=== PATIENT | female | born 1955 | race Caucasian/White ===

== ENCOUNTER 2020-09-17 15:52 | Inpatient (IN) | payer MEDICAID, SELFPAY ==
[~2020-09-17] VITALS: Ht 167.6 cm; Wt 80.7 kg
[2020-09-17 15:52] VITALS: BP_SYST 135
[2020-09-17] MEDS ORDERED: cefTRIAXone 1 GM IVPB PREMIX 50 ML IV ONE (16:15)
[2020-09-17 16:52] LABS: BILIRUBIN,URINE NEGATIVE (NEGATIVE); BLOOD, URINE NEGATIVE (NEGATIVE); COLOR,URINE YELLOW (YELLOW); GLUCOSE,URINE NEGATIVE (NEGATIVE); KETONES,URINE NEGATIVE (NEGATIVE); LEUKOCYTE ESTERASE ,URINE NEGATIVE (NEGATIVE); NITRITE, URINE NEGATIVE (NEGATIVE); PH,URINE 5.5 (5.0-8.0); PROTEIN URINE 2+ (NEGATIVE); UROBILINOGEN,URINE 0.2 (0.2-1.0)
[2020-09-17 17:06] LABS: BASOPHILS % (AUTO) 0.4 % (0.0-2.0); EOSINOPHILS # (AUTO) 0.3 K/uL (0.0-0.4); EOSINOPHILS % (AUTO) 3.8 % (0.0-4.0); HEMATOCRIT 31.5 % (36-48); HEMOGLOBIN 10.8 g/dL (12.0-16.0); LYMPHOCYTES # (AUTO) 2.5 K/uL (1.0-5.5); LYMPHOCYTES % (AUTO) 30.4 % (20.5-51.5); MEAN CORPUSCULAR HEMOGLOBIN 30 pg (27-31); MEAN CORPUSCULAR HGB CONC 34 % (32-36); MEAN CORPUSCULAR VOLUME 89 fL (79.0-98.0); MONOCYTES # (AUTO) 0.5 K/uL (0.0-1.0); MONOCYTES % (AUTO) 6.1 % (1.7-9.3); NEUTROPHILS # (AUTO) 4.9 K/uL (1.8-7.7); NEUTROPHILS % (AUTO) 59.3 % (40.0-70.0); PLATELET COUNT (AUTO) 341 K/uL (130-430); RED BLOOD CELL COUNT(AUTO) 3.55 MIL/uL (4.2-6.2); RED CELL DISTRIBUTION WIDTH 14.7 % (9.0-15.0); WHITE BLOOD COUNT (AUTO) 8.3 K/uL (4.8-10.8)
[2020-09-17 17:19] LABS: CLARITY/URINE HAZY (CLEAR)
[2020-09-17 17:20] LABS: CALCIUM 9.1 mg/dL (8.4-11.0); CREATININE 1.56 mg/dL (0.55-1.30); POTASSIUM 4.2 mmol/L (3.5-5.1)
[2020-09-17 17:37] LABS: ALBUMIN 2.4 g/dL (3.4-4.8)
[2020-09-17 17:39] LABS: INR 0.9 (0.8-1.2); PROTHROMBIN TIME 9.6 SECS (9.5-12.5)
[2020-09-17 17:59] LABS: BACTERIA,URINE None Seen /HPF (None Seen); RBC,URINE 0-3 /HPF (0-3); URINE AMORPHOUS PHOSPHATES None Seen /HPF (None Seen); URINE AMORPHOUS URATE 2+ /HPF (None Seen); WBC,URINE 0-3 /HPF (0-3)
[2020-09-17 18:04] LABS: TOTAL BILIRUBIN 0.2 mg/dL (0.0-1.0)
[2020-09-17 20:18] VITALS: BP_SYST 173
[2020-09-17 20:30] VITALS: BP_SYST 169
[2020-09-17] MEDS ORDERED: LISI-600 PO (22:40)
[2020-09-17] MEDS ORDERED: LIP40 PO (22:40)
[2020-09-17] MEDS ORDERED: OMEP20CA15 PO (22:40)
[2020-09-17] MEDS ORDERED: GLU500 PO (22:40)
[2020-09-17] MEDS ORDERED: NEU300 PO (22:40)
[2020-09-17] MEDS ORDERED: GLIP5TAB13 PO (22:40)
[2020-09-17] MEDS ORDERED: METO25TA6 PO (22:40)
[2020-09-17] MEDS ORDERED: CHLO25TA2 PO (22:40)
[2020-09-17] MEDS ORDERED: ASPI-859 PO (22:40)
[2020-09-17] MEDS ORDERED: hydrALAZINE HCL 20 MG/ML VIAL IVP PRN (22:45)
[2020-09-17 22:55] VITALS: BP_SYST 173
[2020-09-17] MEDS ORDERED: ONDANSETRON HCL 4 MG/2 ML VIAL IVP PRN (23:00)
[2020-09-17] MEDS ORDERED: ALBUTEROL SULFATE 0.083% 2.5 MG/3 ML VIAL.NEB INH PRN (23:00)
[2020-09-17] MEDS ORDERED: METOPROLOL TARTRATE 25 MG TABLET PO ONE (23:15)
[2020-09-17] MEDS: METOPROLOL TARTRATE 25 MG TABLET PO SCH (23:15)
[2020-09-18] VITALS: BP_SYST 142
[2020-09-18] MEDS: INSULIN REGULAR, HUMAN 100 UNITS/ML, 10 ML VIAL (humuLIN R) SUBCUT PRN ×3 (06:10→21:39)
[2020-09-18 06:24] LABS: BASOPHILS # (AUTO) 0.1 K/uL (0.0-0.2); BASOPHILS % (AUTO) 0.6 % (0.0-2.0); EOSINOPHILS # (AUTO) 0.3 K/uL (0.0-0.4); EOSINOPHILS % (AUTO) 3.7 % (0.0-4.0); HEMATOCRIT 29.1 % (36-48); HEMOGLOBIN 9.8 g/dL (12.0-16.0); LYMPHOCYTES # (AUTO) 2.2 K/uL (1.0-5.5); LYMPHOCYTES % (AUTO) 24.8 % (20.5-51.5); MEAN CORPUSCULAR HEMOGLOBIN 30 pg (27-31); MEAN CORPUSCULAR HGB CONC 34 % (32-36); MEAN CORPUSCULAR VOLUME 89 fL (79.0-98.0); MONOCYTES # (AUTO) 0.7 K/uL (0.0-1.0); MONOCYTES % (AUTO) 8.4 % (1.7-9.3); NEUTROPHILS # (AUTO) 5.5 K/uL (1.8-7.7); NEUTROPHILS % (AUTO) 62.5 % (40.0-70.0); PLATELET COUNT (AUTO) 274 K/uL (130-430); RED BLOOD CELL COUNT(AUTO) 3.28 MIL/uL (4.2-6.2); RED CELL DISTRIBUTION WIDTH 14.1 % (9.0-15.0); WHITE BLOOD COUNT (AUTO) 8.8 K/uL (4.8-10.8)
[2020-09-18 07:08] LABS: ALBUMIN 2.1 g/dL (3.4-4.8); CALCIUM 8.8 mg/dL (8.4-11.0); CREATININE 1.14 mg/dL (0.55-1.30); POTASSIUM 3.8 mmol/L (3.5-5.1); TOTAL BILIRUBIN 0.1 mg/dL (0.0-1.0)
[2020-09-18 08:00] VITALS: BP_SYST 98
[2020-09-18] MEDS: lisinopriL 20 MG TABLET PO SCH (09:00)
[2020-09-18] MEDS ORDERED: DIATR MEGLU/DIATRIZ SOD 30 ML SOLUTION PO ONE (09:19)
[2020-09-18 10:52] LABS: TOTAL IRON BIND. CAPACITY 240 ug/dL (250-450)
[2020-09-18 11:28] VITALS: BP_SYST 152
[2020-09-18] MEDS ORDERED: MORPHINE 2 MG/ML INJ. SYRINGE IVP ONE (13:00)
[2020-09-18] MEDS ORDERED: MORPHINE 2 MG/ML INJ. SYRINGE ONE (13:15)
[2020-09-18] MEDS: METOPROLOL TARTRATE 25 MG TABLET PO SCH (13:41)
[2020-09-18] MEDS: ASPIRIN 81 MG TABLET(ECOTRIN) PO SCH (13:41)
[2020-09-18] MEDS: PANTOPRAZOLE SODIUM 40 MG TAB PO SCH (13:41)
[2020-09-18] MEDS: ACETAMINOPHEN 325 MG TABLET PO PRN (13:41)
[2020-09-18 15:43] VITALS: BP_SYST 120
[2020-09-18] MEDS ORDERED: BALSAM PERU/CASTOR OIL 60 GM OINT...G. TP ONE (16:15)
[2020-09-18] MEDS: CHLORTHALIDONE 25 MG TABLET (HYGROTON) PO SCH (17:27)
[2020-09-18 20:00] VITALS: BP_SYST 100
[2020-09-18] MEDS: GABAPENTIN 300 MG CAPSULE PO SCH (21:31)
[2020-09-18] MEDS: ATORVASTATIN 20 MG TABLET PO SCH (21:33)
[2020-09-18] MEDS: NYSTATIN 15 GM TOPICAL POWDER TP SCH (21:34)
[2020-09-19 00:50] VITALS: BP_SYST 92
[2020-09-19 04:24] VITALS: BP_SYST 115
[2020-09-19] MEDS: INSULIN REGULAR, HUMAN 100 UNITS/ML, 10 ML VIAL (humuLIN R) SUBCUT PRN ×4 (05:57→20:02)
[2020-09-19 08:00] VITALS: BP_SYST 158
[2020-09-19] MEDS ORDERED: HYDROcodone/ACETAMIN 5-325 MG TAB (NORCO/ VICODIN) PO PRN (09:15)
[2020-09-19] MEDS: ASPIRIN 81 MG TABLET(ECOTRIN) PO SCH (10:14)
[2020-09-19] MEDS: NYSTATIN 15 GM TOPICAL POWDER TP SCH ×2 (10:14→19:55)
[2020-09-19] MEDS: lisinopriL 20 MG TABLET PO SCH (10:15)
[2020-09-19] MEDS: CHLORTHALIDONE 25 MG TABLET (HYGROTON) PO SCH (10:15)
[2020-09-19] MEDS: PANTOPRAZOLE SODIUM 40 MG TAB PO SCH (10:15)
[2020-09-19] MEDS: BALSAM PERU/CASTOR OIL 60 GM OINT...G. TP SCH (10:16)
[2020-09-19 11:30] VITALS: BP_SYST 148
[2020-09-19 15:47] VITALS: BP_SYST 124
[2020-09-19] MEDS: METOPROLOL TARTRATE 25 MG TABLET PO SCH (17:30)
[2020-09-19 19:34] VITALS: BP_SYST 125
[2020-09-19] MEDS: GABAPENTIN 300 MG CAPSULE PO SCH (19:54)
[2020-09-19] MEDS: ATORVASTATIN 20 MG TABLET PO SCH (19:54)
[2020-09-20] VITALS (8 sets, daily range): BP systolic 102–162
[2020-09-20] MEDS: INSULIN REGULAR, HUMAN 100 UNITS/ML, 10 ML VIAL (humuLIN R) SUBCUT PRN ×3 (06:11→20:38)
[2020-09-20 07:23] LABS: RETICULOCYTE COUNT 1.1 % (0.5-1.5)
[2020-09-20 07:59] LABS: LACTATE DEHYDROGENASE 143 U/L (81-234)
[2020-09-20 08:37] LABS: C-REACTIVE PROTEIN QUANT < 0.2 mg/dL (0-0.5)
[2020-09-20] MEDS: PANTOPRAZOLE SODIUM 40 MG TAB PO SCH (09:00)
[2020-09-20] MEDS: METOPROLOL TARTRATE 25 MG TABLET PO SCH (09:00)
[2020-09-20] MEDS: lisinopriL 20 MG TABLET PO SCH (09:00)
[2020-09-20] MEDS: ASPIRIN 81 MG TABLET(ECOTRIN) PO SCH (09:00)
[2020-09-20] MEDS: CHLORTHALIDONE 25 MG TABLET (HYGROTON) PO SCH (09:00)
[2020-09-20] MEDS: BALSAM PERU/CASTOR OIL 60 GM OINT...G. TP SCH (09:37)
[2020-09-20] MEDS: NYSTATIN 15 GM TOPICAL POWDER TP SCH ×2 (09:37→20:34)
[2020-09-20] MEDS: GABAPENTIN 300 MG CAPSULE PO SCH (20:34)
[2020-09-20] MEDS: ATORVASTATIN 20 MG TABLET PO SCH (20:34)
[2020-09-21] VITALS: BP_SYST 106
[2020-09-21] MEDS: INSULIN REGULAR, HUMAN 100 UNITS/ML, 10 ML VIAL (humuLIN R) SUBCUT PRN ×4 (06:21→20:01)
[2020-09-21 07:51] VITALS: BP_SYST 119
[2020-09-21 09:06] LABS: FERRITIN 70 ng/mL (15-150); FOLATE (FOLIC ACID) 9.8 ng/mL (>3.0); KAPPA & LAMBDA LT CHAIN RATIO 2.09 (0.26-1.65)
[2020-09-21] MEDS: PANTOPRAZOLE SODIUM 40 MG TAB PO SCH (09:25)
[2020-09-21] MEDS: ASPIRIN 81 MG TABLET(ECOTRIN) PO SCH (09:25)
[2020-09-21] MEDS: METOPROLOL TARTRATE 25 MG TABLET PO SCH (09:26)
[2020-09-21] MEDS: lisinopriL 20 MG TABLET PO SCH (09:27)
[2020-09-21] MEDS: CHLORTHALIDONE 25 MG TABLET (HYGROTON) PO SCH (09:27)
[2020-09-21] MEDS: BALSAM PERU/CASTOR OIL 60 GM OINT...G. TP SCH (09:28)
[2020-09-21] MEDS: NYSTATIN 15 GM TOPICAL POWDER TP SCH ×2 (09:28→19:56)
[2020-09-21 12:00] VITALS: BP_SYST 139
[2020-09-21 15:07] LABS: A/G RATIO 0.8 (0.7-1.7); ALBUMIN 2.3 g/dL (2.9-4.4); ALPHA-1-GLOBULIN 0.2 g/dL (0.0-0.4); GAMMA GLOBULIN 0.6 g/dL (0.4-1.8); GLOBULIN, TOTAL 2.8 g/dL (2.2-3.9); M-SPIKE Not Observed g/dL (Not Observed)
[2020-09-21 16:12] VITALS: BP_SYST 135
[2020-09-21] MEDS: ATORVASTATIN 20 MG TABLET PO SCH (19:55)
[2020-09-21] MEDS: GABAPENTIN 300 MG CAPSULE PO SCH (19:56)
[2020-09-21 20:00] VITALS: BP_SYST 100
[2020-09-22 00:22] VITALS: BP_SYST 90
[2020-09-22 00:30] VITALS: BP_SYST 103
[2020-09-22] MEDS: INSULIN REGULAR, HUMAN 100 UNITS/ML, 10 ML VIAL (humuLIN R) SUBCUT PRN ×4 (06:04→20:01)
[2020-09-22 06:43] LABS: BASOPHILS % (AUTO) 0.3 % (0.0-2.0); EOSINOPHILS # (AUTO) 0.3 K/uL (0.0-0.4); EOSINOPHILS % (AUTO) 3.4 % (0.0-4.0); HEMOGLOBIN 9.4 g/dL (12.0-16.0); LYMPHOCYTES % (AUTO) 31.3 % (20.5-51.5); MEAN CORPUSCULAR HEMOGLOBIN 30 pg (27-31); MEAN CORPUSCULAR HGB CONC 33 % (32-36); MEAN CORPUSCULAR VOLUME 89 fL (79.0-98.0); MONOCYTES # (AUTO) 0.6 K/uL (0.0-1.0); MONOCYTES % (AUTO) 6.5 % (1.7-9.3); NEUTROPHILS # (AUTO) 5.6 K/uL (1.8-7.7); NEUTROPHILS % (AUTO) 58.5 % (40.0-70.0); PLATELET COUNT (AUTO) 272 K/uL (130-430); RED BLOOD CELL COUNT(AUTO) 3.14 MIL/uL (4.2-6.2); RED CELL DISTRIBUTION WIDTH 14.4 % (9.0-15.0); WHITE BLOOD COUNT (AUTO) 9.5 K/uL (4.8-10.8)
[2020-09-22] MEDS: ASPIRIN 81 MG TABLET(ECOTRIN) PO SCH (08:28)
[2020-09-22] MEDS: CHLORTHALIDONE 25 MG TABLET (HYGROTON) PO SCH (08:28)
[2020-09-22] MEDS: METOPROLOL TARTRATE 25 MG TABLET PO SCH (08:28)
[2020-09-22] MEDS: PANTOPRAZOLE SODIUM 40 MG TAB PO SCH (08:28)
[2020-09-22 08:29] VITALS: BP_SYST 133
[2020-09-22] MEDS: NYSTATIN 15 GM TOPICAL POWDER TP SCH ×2 (08:29→19:59)
[2020-09-22] MEDS: BALSAM PERU/CASTOR OIL 60 GM OINT...G. TP SCH (08:29)
[2020-09-22] MEDS: lisinopriL 20 MG TABLET PO SCH (08:29)
[2020-09-22] MEDS: ACETAMINOPHEN 325 MG TABLET PO PRN (11:37)
[2020-09-22 12:10] VITALS: BP_SYST 112
[2020-09-22 16:12] VITALS: BP_SYST 135
[2020-09-22] MEDS: GABAPENTIN 300 MG CAPSULE PO SCH (19:59)
[2020-09-22] MEDS: ATORVASTATIN 20 MG TABLET PO SCH (19:59)
[2020-09-22 20:00] VITALS: BP_SYST 127
[2020-09-22] MEDS ORDERED: LIDOCAINE 1% 10 MG/ML, 20 ML MDV INJ ONE (22:00)
[2020-09-23] VITALS (7 sets, daily range): BP systolic 105–157
[2020-09-23] MEDS: INSULIN REGULAR, HUMAN 100 UNITS/ML, 10 ML VIAL (humuLIN R) SUBCUT PRN ×4 (06:06→20:47)
[2020-09-23] MEDS: ASPIRIN 81 MG TABLET(ECOTRIN) PO SCH (08:47)
[2020-09-23] MEDS: PANTOPRAZOLE SODIUM 40 MG TAB PO SCH (08:47)
[2020-09-23] MEDS: lisinopriL 20 MG TABLET PO SCH (08:48)
[2020-09-23] MEDS: METOPROLOL TARTRATE 25 MG TABLET PO SCH (08:48)
[2020-09-23] MEDS: BALSAM PERU/CASTOR OIL 60 GM OINT...G. TP SCH (08:49)
[2020-09-23] MEDS: CHLORTHALIDONE 25 MG TABLET (HYGROTON) PO SCH (08:49)
[2020-09-23] MEDS: NYSTATIN 15 GM TOPICAL POWDER TP SCH ×2 (08:50→20:44)
[2020-09-23] MEDS: ACETAMINOPHEN 325 MG TABLET PO PRN (11:53)
[2020-09-23] MEDS: GABAPENTIN 300 MG CAPSULE PO SCH (20:43)
[2020-09-23] MEDS: ATORVASTATIN 20 MG TABLET PO SCH (20:43)
[2020-09-24 00:36] VITALS: BP_SYST 124
[2020-09-24] MEDS: INSULIN REGULAR, HUMAN 100 UNITS/ML, 10 ML VIAL (humuLIN R) SUBCUT PRN ×4 (06:12→21:00)
[2020-09-24 06:21] LABS: BASOPHILS # (AUTO) 0.1 K/uL (0.0-0.2); BASOPHILS % (AUTO) 0.7 % (0.0-2.0); EOSINOPHILS # (AUTO) 0.3 K/uL (0.0-0.4); EOSINOPHILS % (AUTO) 3.9 % (0.0-4.0); HEMOGLOBIN 9.2 g/dL (12.0-16.0); LYMPHOCYTES # (AUTO) 2.6 K/uL (1.0-5.5); LYMPHOCYTES % (AUTO) 33.8 % (20.5-51.5); MEAN CORPUSCULAR HEMOGLOBIN 30 pg (27-31); MEAN CORPUSCULAR HGB CONC 34 % (32-36); MEAN CORPUSCULAR VOLUME 89 fL (79.0-98.0); MONOCYTES # (AUTO) 0.6 K/uL (0.0-1.0); MONOCYTES % (AUTO) 7.2 % (1.7-9.3); NEUTROPHILS # (AUTO) 4.2 K/uL (1.8-7.7); NEUTROPHILS % (AUTO) 54.4 % (40.0-70.0); PLATELET COUNT (AUTO) 255 K/uL (130-430); RED BLOOD CELL COUNT(AUTO) 3.03 MIL/uL (4.2-6.2); RED CELL DISTRIBUTION WIDTH 14.3 % (9.0-15.0); WHITE BLOOD COUNT (AUTO) 7.8 K/uL (4.8-10.8)
[2020-09-24 06:52] LABS: ALBUMIN 1.9 g/dL (3.4-4.8); CALCIUM 8.8 mg/dL (8.4-11.0); CREATININE 1.8 mg/dL (0.55-1.30); POTASSIUM 4.5 mmol/L (3.5-5.1); TOTAL BILIRUBIN 0.2 mg/dL (0.0-1.0)
[2020-09-24 07:56] VITALS: BP_SYST 144
[2020-09-24] MEDS: lisinopriL 20 MG TABLET PO SCH (07:58)
[2020-09-24] MEDS: PANTOPRAZOLE SODIUM 40 MG TAB PO SCH (07:58)
[2020-09-24] MEDS: METOPROLOL TARTRATE 25 MG TABLET PO SCH (07:59)
[2020-09-24] MEDS: ASPIRIN 81 MG TABLET(ECOTRIN) PO SCH (07:59)
[2020-09-24] MEDS: CHLORTHALIDONE 25 MG TABLET (HYGROTON) PO SCH (08:03)
[2020-09-24] MEDS: NYSTATIN 15 GM TOPICAL POWDER TP SCH ×2 (08:06→20:55)
[2020-09-24] MEDS: BALSAM PERU/CASTOR OIL 60 GM OINT...G. TP SCH (08:06)
[2020-09-24 09:39] VITALS: BP_SYST 144
[2020-09-24] MEDS: ACETAMINOPHEN 325 MG TABLET PO PRN ×2 (10:08→17:54)
[2020-09-24 11:29] VITALS: BP_SYST 176
[2020-09-24 15:11] VITALS: BP_SYST 140
[2020-09-24 20:00] VITALS: BP_SYST 106
[2020-09-24] MEDS: ATORVASTATIN 20 MG TABLET PO SCH (20:55)
[2020-09-24] MEDS: GABAPENTIN 300 MG CAPSULE PO SCH (20:55)
[2020-09-25] VITALS: BP_SYST 84
[2020-09-25 00:06] LABS: HAPTOGLOBIN 196 mg/dL (37-355)
[2020-09-25 00:38] VITALS: BP_SYST 79
[2020-09-25] MEDS ORDERED: NS 250 ML IV ONE (01:30)
[2020-09-25] MEDS: NACL 0.9% 1,000 ML IV SCH ×2 (01:46→12:05)
[2020-09-25 02:07] VITALS: BP_SYST 109
[2020-09-25] MEDS: INSULIN REGULAR, HUMAN 100 UNITS/ML, 10 ML VIAL (humuLIN R) SUBCUT PRN ×2 (06:06→12:09)
[2020-09-25 06:31] LABS: BASOPHILS # (AUTO) 0.1 K/uL (0.0-0.2); BASOPHILS % (AUTO) 0.8 % (0.0-2.0); EOSINOPHILS # (AUTO) 0.3 K/uL (0.0-0.4); EOSINOPHILS % (AUTO) 4.2 % (0.0-4.0); HEMATOCRIT 26.3 % (36-48); HEMOGLOBIN 8.9 g/dL (12.0-16.0); LYMPHOCYTES # (AUTO) 2.7 K/uL (1.0-5.5); LYMPHOCYTES % (AUTO) 33.1 % (20.5-51.5); MEAN CORPUSCULAR HEMOGLOBIN 30 pg (27-31); MEAN CORPUSCULAR HGB CONC 34 % (32-36); MEAN CORPUSCULAR VOLUME 89 fL (79.0-98.0); MONOCYTES # (AUTO) 0.6 K/uL (0.0-1.0); NEUTROPHILS # (AUTO) 4.4 K/uL (1.8-7.7); NEUTROPHILS % (AUTO) 54.9 % (40.0-70.0); PLATELET COUNT (AUTO) 267 K/uL (130-430); RED BLOOD CELL COUNT(AUTO) 2.94 MIL/uL (4.2-6.2); RED CELL DISTRIBUTION WIDTH 14.1 % (9.0-15.0)
[2020-09-25 06:35] LABS: ALBUMIN 1.8 g/dL (3.4-4.8); CALCIUM 8.9 mg/dL (8.4-11.0); CREATININE 1.66 mg/dL (0.55-1.30); POTASSIUM 4.2 mmol/L (3.5-5.1); TOTAL BILIRUBIN 0.1 mg/dL (0.0-1.0)
[2020-09-25 08:00] VITALS: BP_SYST 141
[2020-09-25] MEDS: PANTOPRAZOLE SODIUM 40 MG TAB PO SCH (08:42)
[2020-09-25] MEDS: lisinopriL 20 MG TABLET PO SCH (08:42)
[2020-09-25] MEDS: ASPIRIN 81 MG TABLET(ECOTRIN) PO SCH (08:42)
[2020-09-25] MEDS: METOPROLOL TARTRATE 25 MG TABLET PO SCH (08:43)
[2020-09-25] MEDS: CHLORTHALIDONE 25 MG TABLET (HYGROTON) PO SCH (08:44)
[2020-09-25] MEDS: BALSAM PERU/CASTOR OIL 60 GM OINT...G. TP SCH (08:44)
[2020-09-25] MEDS: NYSTATIN 15 GM TOPICAL POWDER TP SCH (08:44)
[2020-09-25 11:29] VITALS: BP_SYST 152
[2020-09-25 13:33] VITALS: BP_SYST 148
== END 2020-09-25 15:56 | disposition home or self-care (01) | DRG 197 ==
LOC: SED 15:52 → STU 18:29 → SMU 09-18 16:14
PROVIDERS: ADMIT Internal Medicine Hospice and Palliative Medicine; ATTEND Internal Medicine Hospice and Palliative Medicine
PROC: 0JBQ0ZZ Excision of Right Foot Subcutaneous Tissue and Fascia, Open Approach (ICD-10-PCS; principal; 2020-09-22)
DX: E11.52 Type 2 diabetes mellitus with diabetic peripheral angiopathy with gangrene (principal); R10.9 Unspecified abdominal pain; E11.21 Type 2 diabetes mellitus with diabetic nephropathy; E11.319 Type 2 diabetes mellitus with unspecified diabetic retinopathy without macular edema; E11.40 Type 2 diabetes mellitus with diabetic neuropathy, unspecified; E78.5 Hyperlipidemia, unspecified; E43 Unspecified severe protein-calorie malnutrition; I25.10 Atherosclerotic heart disease of native coronary artery without angina pectoris; I10 Essential (primary) hypertension; I96 Gangrene, not elsewhere classified; D64.9 Anemia, unspecified; M54.9 Dorsalgia, unspecified; Z20.828 Contact with and (suspected) exposure to other viral communicable diseases; K86.1 Other chronic pancreatitis; Z98.891 History of uterine scar from previous surgery; Z86.73 Personal history of transient ischemic attack (TIA), and cerebral infarction without residual deficits; Z79.84 Long term (current) use of oral hypoglycemic drugs; Z79.899 Other long term (current) drug therapy; Z79.82 Long term (current) use of aspirin
CPT/HCPCS: 36415; 70450-TC; 71045; 72141; 76700-TC; 80053; 81000-TC; 82550-TC; 82607; 82728; 82746; 82962; 83010; 83540-TC; 83550-TC; 83605; 83615-TC; 84155; 84165; 84443-TC; 84484; 85025; 85044-TC; 85610-TC; 85651-TC; 85730-TC; 86140; 87040-TC; 87086; 93005; 93923; 96365; 97110-GP; 97112-GP; 97530-GP; 99285; G0378; J0360; J0696; J1815; J2001; J2270; J7030; J7050; Q9964; Q9967

== ENCOUNTER 2020-10-06 01:25 | Inpatient (IN) | payer MEDICAID, SELFPAY ==
[~2020-10-06] VITALS: Ht 167.6 cm; Wt 78.0 kg
[2020-10-06 01:25] VITALS: BP_SYST 197
[~2020-10-06 01:25] MED LIST: ASPI-859 PO; CHLO25TA2 PO; GLIP5TAB13 PO; GLU500 PO; LIP40 PO; LISI-600 PO; METO25TA6 PO; NEU300 PO; OMEP20CA15 PO
--- NOTE | 2020-10-06 01:25 | NUR ---
Patient to ER bed 1 to gown for evaluation. Side rails up.
--- NOTE | 2020-10-06 01:25 | NUR ---
ER Dr. Tena at bedside examining patient.
--- NOTE | 2020-10-06 01:25 | NUR ---
Patient BIB by ALS/EMS. C/O ALOC, low blood glucose x today. Per reported , BS 50 at the [facility] [place], Started IV RAC, Given D10 250 ML - BS 293.
--- NOTE | 2020-10-06 01:30 | NUR ---
BS 131, Dr. Tena notified.
--- NOTE | 2020-10-06 01:32 | NUR ---
Covid-19 and MRSA swabs and send to lab.
--- NOTE | 2020-10-06 01:36 | NUR ---
Note cesiaayo in EDM - 10/06/20 at 0230 by [id number] # 16 FR Bishop catheter with use of sterile technique. Immediate return of 300 cc yellow clear urine noted. Bedside drainage bag placed below level of bladder. Urine sample collected and sent to lab. Pt tolerated procedure well. Patient arrived with bishop in place, changed due to standard of practice prior to admission. Patient unable to toilet self.
--- NOTE | 2020-10-06 01:44 | NUR ---
RT at bedside for ABG.
[2020-10-06] MEDS ORDERED: NACL 0.9% 2,000 ML IV ONE (01:45)
[2020-10-06] MEDS ORDERED: NACL 0.9% 1,000 ML IV ONE (01:45)
[2020-10-06 01:57] LABS: BASOPHILS # (AUTO) 0.1 K/uL (0.0-0.2); BASOPHILS % (AUTO) 0.6 % (0.0-2.0); EOSINOPHILS # (AUTO) 0.3 K/uL (0.0-0.4); EOSINOPHILS % (AUTO) 2.3 % (0.0-4.0); HEMATOCRIT 31.3 % (36-48); HEMOGLOBIN 10.3 g/dL (12.0-16.0); LYMPHOCYTES # (AUTO) 1.5 K/uL (1.0-5.5); LYMPHOCYTES % (AUTO) 11.5 % (20.5-51.5); MEAN CORPUSCULAR HEMOGLOBIN 30 pg (27-31); MEAN CORPUSCULAR HGB CONC 33 % (32-36); MEAN CORPUSCULAR VOLUME 90 fL (79.0-98.0); MONOCYTES # (AUTO) 0.6 K/uL (0.0-1.0); MONOCYTES % (AUTO) 4.7 % (1.7-9.3); NEUTROPHILS # (AUTO) 10.6 K/uL (1.8-7.7); NEUTROPHILS % (AUTO) 80.9 % (40.0-70.0); PLATELET COUNT (AUTO) 346 K/uL (130-430); RED BLOOD CELL COUNT(AUTO) 3.47 MIL/uL (4.2-6.2); RED CELL DISTRIBUTION WIDTH 15.3 % (9.0-15.0); WHITE BLOOD COUNT (AUTO) 13.1 K/uL (4.8-10.8)
--- NOTE | 2020-10-06 01:59 | NUR ---
X-ray at bedside.
[2020-10-06 02:03] LABS: BILIRUBIN,URINE NEGATIVE (NEGATIVE); CLARITY/URINE CLEAR (CLEAR); COLOR,URINE YELLOW (YELLOW); GLUCOSE,URINE NEGATIVE (NEGATIVE); KETONES,URINE NEGATIVE (NEGATIVE); LEUKOCYTE ESTERASE ,URINE NEGATIVE (NEGATIVE); NITRITE, URINE NEGATIVE (NEGATIVE); PROTEIN URINE 2+ (NEGATIVE); UROBILINOGEN,URINE 0.2 (0.2-1.0)
[2020-10-06 02:06] LABS: BLOOD, URINE TRACE (NEGATIVE)
[2020-10-06 02:08] LABS: BACTERIA,URINE MODERATE /HPF (None Seen); WBC,URINE 0-3 /HPF (0-3)
[2020-10-06] MEDS ORDERED: INSU100V9 SQ (02:18)
[2020-10-06] MEDS ORDERED: INSU100V46 SUBCUT (02:18)
--- NOTE | 2020-10-06 02:19 | NUR ---
Medication reconciliation completed with information provided by family. Any prior medication reconciliation on file was reviewed and corrected.
--- NOTE | 2020-10-06 02:30 | NUR ---
Patient came back from CT scan via gurney with RT and Florence, RN
[2020-10-06 02:34] LABS: BARBITURATE, URINE NEGATIVE (NEG <=200); BENZODIAZEPINE, URINE NEGATIVE (NEG <=150); CANNABINOID, URINE NEGATIVE (NEG <=50); COCAINE, URINE NEGATIVE (NEG <=150); METHAMPHETAMINES SCREEN,URINE NEGATIVE (NEG <=500); OPIATE, URINE NEGATIVE (NEG <=100); PHENCYCLIDINE SCREEN,URINE NEGATIVE (NEG <=25); UR TRICYCLIC ANTIDEPRESSANTS NEGATIVE (NEG <=300); URINE AMPHETAMINE NEGATIVE (NEG <=500); URINE METHADONE NEGATIVE (NEG <=200); URINE OXYCODONE SCREEN NEGATIVE (NEG <=100); URINE PROPOXYPHENE SCREEN NEGATIVE (NEG <=300)
--- NOTE | 2020-10-06 02:35 | NUR ---
BS 122 , Dr. Ken notified.
[2020-10-06 02:39] LABS: ANION GAP 9 (5-15); CALCIUM 8.8 mg/dL (8.4-11.0); CHLORIDE 104 mmol/L (98-107); CREATININE 1.32 mg/dL (0.55-1.30); GLUCOSE 111 mg/dL (70-99); POTASSIUM 3.9 mmol/L (3.5-5.1); SODIUM SERUM 138 mmol/L (136-145); UREA NITROGEN, BLOOD 49 mg/dL (8-21)
[2020-10-06 02:44] LABS: ACETAMINOPHEN < 1 ug/mL (1-30); ALANINE AMINOTRANSFERASE 91 U/L (12-78); ALBUMIN 2.4 g/dL (3.4-4.8); ASPARTATE AMINOTRANSFERASE 53 U/L (10-37); TOTAL BILIRUBIN 0.1 mg/dL (0.0-1.0)
[2020-10-06] MEDS ORDERED: NALOXONE HCL 0.4 MG/ML AMP (NARCAN) IVP ONE (02:45)
--- NOTE | 2020-10-06 02:45 | NUR ---
Empty urine bag- urine 1600 ML
[2020-10-06 02:47] LABS: INR 0.9 (0.8-1.2); PROTHROMBIN TIME 9.6 SECS (9.5-12.5)
[2020-10-06 02:57] LABS: GFR AFRICAN AMERICAN 52 mL/min (>90)
[2020-10-06 02:58] LABS: ALCOHOL, BLOOD < 3 mg/dL (<10)
[2020-10-06 03:20] LABS: BARBITURATE, URINE NEGATIVE (NEG <=200); BENZODIAZEPINE, URINE NEGATIVE (NEG <=150); CANNABINOID, URINE NEGATIVE (NEG <=50); COCAINE, URINE NEGATIVE (NEG <=150); METHAMPHETAMINES SCREEN,URINE NEGATIVE (NEG <=500); OPIATE, URINE NEGATIVE (NEG <=100); PHENCYCLIDINE SCREEN,URINE NEGATIVE (NEG <=25); UR TRICYCLIC ANTIDEPRESSANTS NEGATIVE (NEG <=300); URINE AMPHETAMINE NEGATIVE (NEG <=500); URINE METHADONE NEGATIVE (NEG <=200); URINE OXYCODONE SCREEN NEGATIVE (NEG <=100); URINE PROPOXYPHENE SCREEN NEGATIVE (NEG <=300)
--- NOTE | 2020-10-06 03:24 | NUR ---
Patient resting quietly. No acute distress noted. Vital signs within normal range.
[2020-10-06] MEDS ORDERED: LORazepam 2 MG/ML VIAL IVP ONE (04:00)
[2020-10-06] MEDS ORDERED: cefTRIAXone 1 GM in D5W 50 ML IV ONE (04:15)
[2020-10-06] MEDS ORDERED: cefTRIAXone 1 GM IVPB PREMIX 50 ML IV ONE (04:31)
--- NOTE | 2020-10-06 05:11 | NUR ---
Patient will be admitted to care of . Admitted to Tele unit. Will go to room 112B. Belongings list completed. Complete and up to date summary report printed. SBAR report to be given at bedside with opportunity for questions.
--- NOTE | 2020-10-06 05:24 | NUR ---
ADMIT NOTE Received pt from ER to the floor with a diagnosis of UTI. Admission process initiated. patient oriented to pain management, safety and call light-pt is confuse.
--- NOTE | 2020-10-06 05:30 | NUR ---
OPENING NOTE RECEIVED PATIENT LETHARGIC IN BED, AROUSABLE TO AUDITORY STIMULI. AOX2. RESPIRATIONS EVEN AND UNLABORED ON ROOM AIR. CHACON CATHETER IN PLACE, PATENT AND DRAINING YELLOW URINE TO GRAVITY. IV SITE PATENT AND INTACT, PATIENT TOLERATING IV FLUIDS. SAFETY, FALL, AND ASPIRATION PRECAUTIONS IN PLACE. BED LOCKED IN LOW POSITION, CALL LIGHT IN REACH. WILL CONTINUE TO MONITOR.
[2020-10-06 06:12] VITALS: BP_SYST 162
[2020-10-06] MEDS: NACL 0.9% 1,000 ML IV SCH ×2 (06:36→15:32)
--- NOTE | 2020-10-06 07:00 | NUR ---
BLOOD SUGAR ACCUCHECK DONE, BLOOD SUGAR 148. NO COVERAGE GIVEN. PATIENT SLEEPING BUT AROUSABLE TO AUDITORY STIMULI.
[2020-10-06 08:00] VITALS: BP_SYST 149
[2020-10-06] MEDS ORDERED: lisinopriL 20 MG TABLET PO ONE (09:00)
[2020-10-06] MEDS ORDERED: DEXTROSE 50% JECT 50 ML DISP.SYRIN IVP PRN (09:00)
[2020-10-06] MEDS ORDERED: D5W 1,000 ML IV PRN (09:00)
[2020-10-06] MEDS ORDERED: METOPROLOL TARTRATE 25 MG TABLET PO ONE (09:00)
[2020-10-06] MEDS ORDERED: CHLORTHALIDONE 25 MG TABLET (HYGROTON) PO ONE (09:00)
[2020-10-06] MEDS ORDERED: ASPIRIN 81 MG TABLET(ECOTRIN) PO ONE (09:00)
[2020-10-06] MEDS ORDERED: GLUCOSE (DEXTROSE) ORAL GEL -Adults PO PRN (09:00)
[2020-10-06] MEDS: PANTOPRAZOLE SODIUM 40 MG TAB PO SCH (10:17)
[2020-10-06 10:50] LABS: FREE T4 (FREE THYROXINE) 0.9 ng/dl (0.8-1.5); THYROID STIMULATING HORMONE 1.54 uIu/mL (0.36-3.74)
--- NOTE | 2020-10-06 11:13 | NUR ---
Nutrition Update Ra Scale 16 noted. Pt admitted for UTI. Diet: cardiac, CCHO standard carb-60 gm BMI: 27.8 kg/m2 RD to follow per nutrition care standards.
[2020-10-06 11:28] VITALS: BP_SYST 149
[2020-10-06] MEDS: INSULIN Lispro 100 UNITS/ML VIAL (humaLOG) SUBCUT SCH ×2 (11:30→17:00)
[2020-10-06] MEDS: INSULIN LISPRO SLIDING SCALE 100 UNITS/ML VIAL (humaLOG) SUBCUT PRN ×3 (11:52→21:29)
--- NOTE | 2020-10-06 12:04 | NUR ---
rounds no hypo hyperglycemic reaction noted. denies pain and eating lunch. no sob noted.
--- NOTE | 2020-10-06 14:57 | NUR ---
Case mgt: Rec'd director of social media marketing referral for dc planning for SNF--pt has [facility] presumptive insurance. SNFs will not take pts with hospital presumptive--per son Timoteo, they are not pursuing [employer] application in [place] because plan is for pt to move back to [place] with daughter who is a nurse in early-to mid October. Pt is currently living with Timoteo in one story apartment.He said pt was confused but nurse Joyce indicates pt now alert and oriented--I made Joyce aware of dcp for SNF but unable to process order for now.Jaspal Mahmood says he checks pt's accuchecks daily and pt has FWW, raised toilet seat, feeds herself. F/U for dc planning-PT evaluation order pending-SLIM LITTLE
[2020-10-06 15:26] VITALS: BP_SYST 103
--- NOTE | 2020-10-06 16:36 | NUR ---
P.T. NOTES P.T. EVAL COMPLETED; REFER TO EVAL FOR DETAILS.
[2020-10-06] MEDS: metFORMIN HCL 500 MG TABLET PO SCH (18:00)
--- NOTE | 2020-10-06 19:00 | NUR ---
closing notes endoresed to night nurse re dr burris to hold all diabetic meds and just use the slidng scale. no hypo hyperglycemci reaction noted.
--- NOTE | 2020-10-06 19:30 | NUR ---
OPENING NOTE RECEIVED PATIENT IN BED SLEEPING, AROUSABLE TO AUDITORY STIMULI. AOX4. RESPIRATIONS EVEN AND UNLABORED ON ROOM AIR. CHACON CATHETER IN PLACE, PATENT AND DRAINING YELLOW URINE TO GRAVITY. IV SITE PATENT AND INTACT, PATIENT TOLERATING IV FLUIDS. SAFETY, FALL, AND ASPIRATION PRECAUTIONS IN PLACE. BED LOCKED IN LOW POSITION, CALL LIGHT IN REACH. WILL CONTINUE TO MONITOR.
[2020-10-06 20:00] VITALS: BP_SYST 106
[2020-10-06] MEDS: INSULIN GLARGINE 100 UNITS/ML 10 ML VIAL SQ SCH (21:00)
--- NOTE | 2020-10-06 21:00 | NUR ---
MEDICATION PASS BLOOD SUGAR 211, COVERAGE GIVEN ORDERED. PATIENT TOLERATED. PROVIDED HYGIENE CARE. PATIENT CONTINUES TO REST IN BED WITH NO COMPLAINTS OF DISCOMFORT AT THIS TIME.
[2020-10-06] MEDS: ATORVASTATIN 20 MG TABLET PO SCH (21:17)
[2020-10-06] MEDS: GABAPENTIN 300 MG CAPSULE PO SCH (21:17)
[2020-10-07] VITALS: BP_SYST 118
[2020-10-07] MEDS: NACL 0.9% 1,000 ML IV SCH ×3 (06:10→21:50)
[2020-10-07] MEDS: cefTRIAXone 1 GM IVPB PREMIX 50 ML IV SCH (06:11)
--- NOTE | 2020-10-07 06:15 | NUR ---
CLOSING NOTE PATIENT TOLERATED MEDICATIONS ORDERED. HELD ANTIDIABETIC MEDICATIONS AT THIS TIME PER DR JONES. BLOOD SUGAR 123, NO COVERAGE NEEDED. PATIENT STABLE THROUGHOUT SHIFT. RESPIRATIONS EVEN AND UNLABORED ON ROOM AIR. CHACON CATHETER CONTINUES TO DRAIN YELLOW URINE TO GRAVITY. SAFETY AND FALL PRECAUTIONS MAINTAINED. BED LOCKED IN LOW POSITION CALL LIGHT WITHIN REACH. WILL CONTINUE TO MONITOR UNTIL ENDORSED TO AM SHIFT.
[2020-10-07] MEDS: INSULIN Lispro 100 UNITS/ML VIAL (humaLOG) SUBCUT SCH ×3 (06:54→17:00)
[2020-10-07 08:00] VITALS: BP_SYST 156
[2020-10-07] MEDS: metFORMIN HCL 500 MG TABLET PO SCH ×2 (08:00→18:00)
--- NOTE | 2020-10-07 08:00 | NUR ---
initial notes rec patient awake alert with ivf infusing well. no infiltration noted.resp easy and unlabored. no osb noted. bed to the lowest position and side rails up and locked. call light within reached. denies pain.
[2020-10-07] MEDS ORDERED: lisinopriL 20 MG TABLET PO SCH (09:00)
[2020-10-07] MEDS ORDERED: cefTRIAXone 1 GM VIAL IV SCH (09:00)
[2020-10-07 09:27] LABS: BASOPHILS # (AUTO) 0.1 K/uL (0.0-0.2); BASOPHILS % (AUTO) 0.7 % (0.0-2.0); EOSINOPHILS # (AUTO) 0.4 K/uL (0.0-0.4); EOSINOPHILS % (AUTO) 4.2 % (0.0-4.0); HEMATOCRIT 25.9 % (36-48); HEMOGLOBIN 8.7 g/dL (12.0-16.0); LYMPHOCYTES % (AUTO) 30.7 % (20.5-51.5); MEAN CORPUSCULAR HEMOGLOBIN 30 pg (27-31); MEAN CORPUSCULAR HGB CONC 34 % (32-36); MEAN CORPUSCULAR VOLUME 90 fL (79.0-98.0); MONOCYTES # (AUTO) 0.7 K/uL (0.0-1.0); MONOCYTES % (AUTO) 6.6 % (1.7-9.3); NEUTROPHILS # (AUTO) 5.7 K/uL (1.8-7.7); NEUTROPHILS % (AUTO) 57.8 % (40.0-70.0); PLATELET COUNT (AUTO) 288 K/uL (130-430); RED BLOOD CELL COUNT(AUTO) 2.87 MIL/uL (4.2-6.2); RED CELL DISTRIBUTION WIDTH 15.4 % (9.0-15.0); WHITE BLOOD COUNT (AUTO) 9.9 K/uL (4.8-10.8)
[2020-10-07] MEDS: METOPROLOL TARTRATE 25 MG TABLET PO SCH (09:35)
[2020-10-07] MEDS: ASPIRIN 81 MG TABLET(ECOTRIN) PO SCH (09:35)
[2020-10-07] MEDS: PANTOPRAZOLE SODIUM 40 MG TAB PO SCH (09:35)
[2020-10-07] MEDS: CHLORTHALIDONE 25 MG TABLET (HYGROTON) PO SCH (09:36)
[2020-10-07 09:42] LABS: CALCIUM 8.6 mg/dL (8.4-11.0); CREATININE 1.33 mg/dL (0.55-1.30); PHOSPHORUS 4.1 mg/dL (2.7-4.5); POTASSIUM 4.5 mmol/L (3.5-5.1)
--- NOTE | 2020-10-07 09:49 | NUR ---
rounds due meds were given and oscar well. sleeps at intervals.
[2020-10-07 12:15] VITALS: BP_SYST 152
[2020-10-07] MEDS: INSULIN LISPRO SLIDING SCALE 100 UNITS/ML VIAL (humaLOG) SUBCUT PRN ×3 (12:51→21:44)
[2020-10-07] MEDS: lisinopriL 20 MG TABLET PO ONE ×2 (13:25→13:27)
--- NOTE | 2020-10-07 13:30 | NUR ---
rounds no hypo hyperglycemic reaction noted. bed to the lowest position. continue to sleeps at intervals.
[2020-10-07 17:16] VITALS: BP_SYST 117
--- NOTE | 2020-10-07 18:45 | NUR ---
closing notes pt called and stated that both hands were numb. bs was checked and and vital signs were taken. dr traylor was called and notified re pt's complaint. stated that pt's needs to be getting out of bed. no hypo hyperglycemic reaction noted. mentioned also re the blood sugar meds that were held by dr burris and stated to resume them. will endorse to night nurse .
--- NOTE | 2020-10-07 19:45 | NUR ---
OPENING NOTE RECEIVED PATIENT IN BED SLEEPING, AROUSABLE TO AUDITORY STIMULI. AOX4. NO SIGNS OF DISTRESS NOTED. RESPIRATIONS EVEN AND UNLABORED ON ROOM AIR. CHACON CATHETER IN PLACE, PATENT AND DRAINING YELLOW URINE TO GRAVITY. IV SITE PATENT AND INTACT, PATIENT TOLERATING IV FLUIDS. SAFETY, FALL, AND ASPIRATION PRECAUTIONS IN PLACE. BED LOCKED IN LOW POSITION, CALL LIGHT IN REACH. WILL CONTINUE TO MONITOR.
[2020-10-07 20:00] VITALS: BP_SYST 111
--- NOTE | 2020-10-07 21:00 | NUR ---
MEDICATION PASS PATIENT TOLERATED ALL MEDICATIONS ORDERED. BLOOD SUGAR 175, COVERAGE GIVEN ORDERED. PATIENT CONTINUES TO SLEEP IN BED WITH NO COMPLAINTS OF DISCOMFORT AT THIS TIME.
[2020-10-07] MEDS: ATORVASTATIN 20 MG TABLET PO SCH (21:25)
[2020-10-07] MEDS: GABAPENTIN 300 MG CAPSULE PO SCH (21:25)
[2020-10-07] MEDS: INSULIN GLARGINE 100 UNITS/ML 10 ML VIAL SQ SCH (21:34)
[2020-10-08] VITALS: BP_SYST 109
--- NOTE | 2020-10-08 01:30 | NUR ---
RN ROUNDS PATIENT AWAKE IN BED WATCHING TV COMFORTABLY. LINENS CHANGED. SNACK PROVIDED. PATIENT TOLERATED.
[2020-10-08] MEDS: cefTRIAXone 1 GM IVPB PREMIX 50 ML IV SCH (06:06)
[2020-10-08] MEDS: NACL 0.9% 1,000 ML IV SCH (06:15)
[2020-10-08] MEDS: INSULIN Lispro 100 UNITS/ML VIAL (humaLOG) SUBCUT SCH ×2 (06:21→11:59)
[2020-10-08 07:37] LABS: BASOPHILS # (AUTO) 0.1 K/uL (0.0-0.2); BASOPHILS % (AUTO) 0.7 % (0.0-2.0); EOSINOPHILS # (AUTO) 0.4 K/uL (0.0-0.4); EOSINOPHILS % (AUTO) 5.2 % (0.0-4.0); HEMATOCRIT 25.1 % (36-48); HEMOGLOBIN 8.5 g/dL (12.0-16.0); LYMPHOCYTES # (AUTO) 2.8 K/uL (1.0-5.5); MEAN CORPUSCULAR HEMOGLOBIN 30 pg (27-31); MEAN CORPUSCULAR HGB CONC 34 % (32-36); MEAN CORPUSCULAR VOLUME 90 fL (79.0-98.0); MONOCYTES # (AUTO) 0.6 K/uL (0.0-1.0); MONOCYTES % (AUTO) 7.2 % (1.7-9.3); NEUTROPHILS # (AUTO) 4.4 K/uL (1.8-7.7); NEUTROPHILS % (AUTO) 52.9 % (40.0-70.0); PLATELET COUNT (AUTO) 279 K/uL (130-430); RED BLOOD CELL COUNT(AUTO) 2.79 MIL/uL (4.2-6.2); RED CELL DISTRIBUTION WIDTH 15.2 % (9.0-15.0); WHITE BLOOD COUNT (AUTO) 8.2 K/uL (4.8-10.8)
[2020-10-08 07:50] VITALS: BP_SYST 155
--- NOTE | 2020-10-08 08:00 | NUR ---
Note Pt sitting up in bed eating ehr breakfast. No SOB/resp distress or pain/discomfort noted at this time. IV in RAC intact and patent infusing IVF's well. Pt's Childers catheter intact and draining. No needs noted at this time. Call light within reach.
[2020-10-08 08:06] LABS: CALCIUM 8.6 mg/dL (8.4-11.0); CREATININE 1.32 mg/dL (0.55-1.30); PHOSPHORUS 4.1 mg/dL (2.7-4.5); POTASSIUM 3.9 mmol/L (3.5-5.1)
[2020-10-08] MEDS: ASPIRIN 81 MG TABLET(ECOTRIN) PO SCH (08:33)
[2020-10-08] MEDS: CHLORTHALIDONE 25 MG TABLET (HYGROTON) PO SCH (08:33)
[2020-10-08] MEDS: METOPROLOL TARTRATE 25 MG TABLET PO SCH (08:34)
[2020-10-08] MEDS: PANTOPRAZOLE SODIUM 40 MG TAB PO SCH (08:34)
[2020-10-08] MEDS: metFORMIN HCL 500 MG TABLET PO SCH (08:34)
[2020-10-08] MEDS ORDERED: lisinopriL 20 MG TABLET PO SCH (09:00)
--- NOTE | 2020-10-08 12:00 | NUR ---
Note Pt encouraged to turn side to side while in bed. Pt now sitting with HOB at 90'. Denies any needs at this time. Call light within reach. Pt next to nurses' station for close observation of needs and care all shift.
[2020-10-08] MEDS: INSULIN LISPRO SLIDING SCALE 100 UNITS/ML VIAL (humaLOG) SUBCUT PRN (12:01)
[2020-10-08] MEDS ORDERED: CEPH-568 PO (12:09)
[2020-10-08 12:30] VITALS: BP_SYST 147
--- NOTE | 2020-10-08 13:22 | NUR ---
Dietitian Recommendations *Continue Cardiac CCHO diet. Provide soft vegetables. Please see Nutritional Assessment for details. JAMEEL CAO
--- NOTE | 2020-10-08 14:02 | NUR ---
SS notes: CLAY CARMAN was referred by CM to follow up on patient's [employer] application. CLAY CARMAN spoke with Yordy De La Rosa from [email or web address]. Per Yordy, pt received the paperwork needed to complete the [employer] application but has not filled it out. Per Yordy, the patient is moving [place] of [place] in 2-[address] weeks time. Discharge order in place; pt is discharged home.
[2020-10-08 15:00] VITALS: BP_SYST 132
--- NOTE | 2020-10-08 16:00 | NUR ---
Note Spoke to pt's son Timoteo and questions/concerns were answered at this time about pt's discharge home.
[2020-10-08 16:20] VITALS: BP_SYST 156
--- NOTE | 2020-10-08 17:15 | NUR ---
Note Pt's Childers catheter was dc'd and adult brief applied. Pt was assisted in getting dressed and all belongings were packed. Pt checked side table and drawers for belongings. Pt was checked on q1' and PRN all shift for needs and care. Pt was maintained with safety precautions all shift. Pt was given discharge instructions and questions/concerns were discussed with pt and her son Timoteo. Pt denied any SOB/resp distress or pain/discomfort all shift. No needs noted at this time. Call light within reach. IV in right AC was dc'd and site benign - no swelling/redness/bleeding/drainage noted at this time.
--- NOTE | 2020-10-08 17:20 | NUR ---
Note Pt off the floor via wheelchair with all her belongings and discharge paperwork. Pt stable. Pt's son Timoteo at front of the hospital to receive his mother (pt).
--- NOTE | 2020-10-09 14:09 | NUR ---
Discharge Follow Up Phone Call Phoned patient, , who stated she was doing fine. She is being cared for by her niece. When I asked about her prescription, her niece took the call. They had listed patient's preferred pharmacy as [facility] in [place] because patient recently lived there. Patient is now staying in [place]. They need the prescription called to [facility] . I phoned [facility], they will cancel the rx but not send it to [facility]. I phoned Leda LITTLE, charge nurse. She stated Dr Sin or Fredi would need to call it in. Phoned Dr Sin. He said to call the office and speak to Suzanne who will call it in. Gave the information to Suzanne. She will call it in. Phoned patient's niece. Told her to phone the pharmacy in ten min to assure the prescription is there and call me back if there are any problems. They will try to get patient out to her PCP in [place] prior to patient's move in two weeks. No other questions or concerns.
== END 2020-10-08 17:20 | disposition home or self-care (01) | DRG 720 ==
LOC: SED 01:25 → STU 04:33 → SMU 10-07 10:06
DX: A41.9 Sepsis, unspecified organism (principal); N39.0 Urinary tract infection, site not specified; I50.23 Acute on chronic systolic (congestive) heart failure; G93.41 Metabolic encephalopathy; E43 Unspecified severe protein-calorie malnutrition; E11.40 Type 2 diabetes mellitus with diabetic neuropathy, unspecified; G31.9 Degenerative disease of nervous system, unspecified; E78.5 Hyperlipidemia, unspecified; G43.909 Migraine, unspecified, not intractable, without status migrainosus; K21.9 Gastro-esophageal reflux disease without esophagitis; E11.649 Type 2 diabetes mellitus with hypoglycemia without coma; R74.01 Elevation of levels of liver transaminase levels; E86.0 Dehydration; I25.10 Atherosclerotic heart disease of native coronary artery without angina pectoris; I11.0 Hypertensive heart disease with heart failure; Z20.828 Contact with and (suspected) exposure to other viral communicable diseases; Z88.1 Allergy status to other antibiotic agents; Z88.8 Allergy status to other drugs, medicaments and biological substances; Z79.4 Long term (current) use of insulin; Z79.899 Other long term (current) drug therapy; Z86.73 Personal history of transient ischemic attack (TIA), and cerebral infarction without residual deficits; Z79.82 Long term (current) use of aspirin; Z68.27 Body mass index [BMI] 27.0-27.9, adult
CPT/HCPCS: 36415; 36600; 70450-TC; 71045; 76376; 80048; 80053; 80307; 81000-TC; 82803-TC; 82962; 83036; 83605; 83735-TC; 84100-TC; 84439; 84443-TC; 84484; 85025; 85610-TC; 85730-TC; 86886; 86900; 86901; 87040-TC; 87081; 87086; 93005; 96365; 96375; 97112-GP; 97116-GP; 97530-GP; 99285; G0378; G0480; G0481; G0482; J0696; J7060